=== PATIENT | female | born 2005 | race Caucasian/White ===

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

== ENCOUNTER 2023-08-20 17:17 | Outpatient (REF) | payer BC, SELFPAY ==
[2023-08-20 20:11] LABS: HCT 41.5 % (36.0-46.0); HGB 13.7 g/dL (11.2-15.7); MCH 29.7 pg (27.0-33.0); MCV 90 fL (80-95); Platelet Count 313 10^3/uL (130-400); RBC 4.62 10^6/uL (3.93-5.22); RDW 12.6 % (11.7-14.6); RDW-SD 41.4 fL
[2023-08-20 20:24] LABS: ALT 23 U/L (14-59); AST 13 U/L (15-37); Albumin 3.7 g/dL (3.4-5.0); Alkaline Phosphatase 66 U/L (46-116); Anion Gap 10.3 mmol/L (3-11); BUN 8 mg/dL (7-18); Bilirubin, Total 0.3 mg/dL (0.2-1.0); CO2 27.7 mmol/L (21.0-32.0); CREATININE 0.7 mg/dL (0.55-1.02); Calcium 8.9 mg/dL (8.5-10.1); Chloride 105 mmol/L (98-107); Estimated GFR 127.69 (mL/min/1.73m2); Glucose 107 mg/dL (74-106); Lipase 28 U/L (16-77); Potassium 4.2 mmol/L (3.5-5.1); Sodium 143 mmol/L (136-145); Total Protein 6.9 g/dL (6.4-8.2)
[2023-08-20 20:34] LABS: HCG Qual (Serum) Negative
[2023-08-21 19:51] LABS: HIV-1/2 Ag & Ab Screen Negative (Negative)
[2023-08-21 19:52] LABS: Hepatitis C Ab w Rflx HCV PCR Negative (Negative)
[2023-08-22 09:25] LABS: Syphilis Serology (RPR) Negative (Negative)
[2023-08-22 10:02] LABS: IgA 113 mg/dL (85-499)
[2023-08-22 10:18] LABS: Tissue Transglutaminase IgA 26.6 CU (<20.0)
[2023-08-22 15:14] LABS: Chlamydia Result Negative (Negative); GC Result Negative (Negative)
== END 2023-08-20 17:18 | disposition home or self-care (01) ==
LOC: NCHCN 17:17
PROVIDERS: PCP Family Medicine; Visit Provider Family Medicine
DX: R10.9 Unspecified abdominal pain (principal); Z11.3 Encounter for screening for infections with a predominantly sexual mode of transmission; Z11.4 Encounter for screening for human immunodeficiency virus [HIV]; Z11.59 Encounter for screening for other viral diseases
CPT/HCPCS: 80053; 82784; 83690; 85027; 86364; 86803; 87389; 87491; 87591; 84703; 86592

== ENCOUNTER 2025-02-26 13:44 | Outpatient (REF) | payer BC, SELFPAY ==
[2025-02-26 15:13] LABS: Glucose Negative (Negative)
[2025-02-26 15:53] LABS: C & S Indicated? No
== END 2025-02-26 13:45 | disposition home or self-care (01) ==
LOC: NCHCN 13:44
PROVIDERS: PCP Family Medicine; Visit Provider Physician Assistant
DX: R30.0 Dysuria (principal)
CPT/HCPCS: 81003; 81015

== ENCOUNTER 2025-03-27 16:41 | Outpatient (REF) | payer BC, SELFPAY ==
[2025-03-27 21:02] LABS: Glucose Negative (Negative)
[2025-03-27 21:04] LABS: HCT 39.8 % (36.0-46.0); HGB 13.2 g/dL (11.2-15.7); MCH 28.6 pg (27.0-33.0); MCHC 33.2 % (32.0-36.0); MCV 86 fL (80-95); MPV 10.0 fL (8.0-11.0); Platelet Count 359 10^3/uL (130-400); RBC 4.62 10^6/uL (3.93-5.22); RDW 12.5 % (11.7-14.6); RDW-SD 39.3 fL; WBC 7.89 10^3/uL (4.4-10.8)
[2025-03-27 21:12] LABS: C & S Indicated? No
[2025-03-27 21:26] LABS: Iron 66 ug/dL (50-170); Total Iron Binding Capacity 329 ug/dL (250-450); Transferrin Sat 20 % (15-50)
[2025-03-27 21:33] LABS: ALT 25 U/L (14-59); AST 10 U/L (15-37); Albumin 4.0 g/dL (3.4-5.0); Alkaline Phosphatase 52 U/L (46-116); Anion Gap 10.3 mmol/L (3-11); BUN 9 mg/dL (7-18); Bilirubin, Total 0.4 mg/dL (0.2-1.0); CO2 26.7 mmol/L (21.0-32.0); Calcium 9.1 mg/dL (8.5-10.1); Chloride 102 mmol/L (98-107); Estimated GFR 126.11 (mL/min/1.73m2); Ferritin 10 ng/mL (8-252); Glucose 92 mg/dL (74-106); Potassium 4.2 mmol/L (3.5-5.1); Sodium 139 mmol/L (136-145); TSH (W/Ref FT4) 0.85 uIU/mL (0.36-3.74); Total Protein 7.6 g/dL (6.4-8.2)
[2025-04-03 15:09] LABS: 1,25-Dihydroxyvitamin D 25 pg/mL (18-78)
== END 2025-03-27 16:42 | disposition home or self-care (01) ==
LOC: NCHCN 16:41
PROVIDERS: PCP Family Medicine; Visit Provider Family Medicine
DX: K90.0 Celiac disease (principal); N39.0 Urinary tract infection, site not specified
CPT/HCPCS: 80053; 85027; 81003; 81015; 82652; 82728; 83540; 83550; 84443

== ENCOUNTER 2025-05-15 11:40 | Outpatient (REF) | payer BC, SELFPAY ==
--- NOTE | 2025-05-15 13:15 | PAPFT_PTH ---
PATIENT: Diana Marley LOC: [facility] U#:[id number] AGE/SX: 19/F ROOM: RE05/15/[address]: Kendra Childers : 2005 BED: DIS: 05/15/2025 SPEC #: [id number] RECD: 05/18/25 13:20 STATUS: CATHERINE REDavin #: [id number] RUSH: 05/15/25 13:[address]: Kendra Childers DEPT: [facility] Cytology RECD BY: Shereen Tello ENTERED: 05/18/25 13:20 SP TYPE: PAPFT OTHR DR: Anam Meadows Tissues: 1 - CX/ENDOCX FOR PAP SMEARS Procedures: PAP THIN PREP/[facility] Screening Comments: [id number] (CHLAMYDIA/GC)
[2025-05-19 11:48] LABS: Chlamydia Result Negative (Negative); GC Result Negative (Negative)
== END 2025-05-15 11:41 | disposition home or self-care (01) ==
LOC: LBN 11:40
PROVIDERS: PCP Family Medicine; Visit Provider Family Medicine
DX: Z12.4 Encounter for screening for malignant neoplasm of cervix (principal)
CPT/HCPCS: 87491; 87591; 88142